=== PATIENT | female | born 1970 | race Hispanic/Latino ===

== ENCOUNTER 2018-10-28 08:36 | Emergency (ER) | payer SELFPAY ==
[2018-10-28] MEDS ORDERED: METOCLOPRAMIDE 10 MG/2mL INJ ONE (09:29)
[2018-10-28] MEDS ORDERED: DIPHENHYDRAMINE 50 MG/ML VIAL ONE (09:29)
[2018-10-28] MEDS ORDERED: dexAMETHasone 10 MG/ML VIAL ONE (09:29)
[2018-10-28] MEDS ORDERED: NA CHLORIDE 0.9% 1,000 ML ONE (09:29)
[2018-10-28 09:38] LABS: Protime INR 1.01
[2018-10-28 09:48] LABS: Absolute Lymphocytes (CBC) 2.7 K/uL (0.7-4.9); Basophils % 0.6 % (0-1.3); Eosinophils % 1.4 % (0-4.4); Hematocrit 40.1 % (36.0-45.0); Lymphocytes % 27.2 % (15.3-44.8); MPV 9.1 fL (7.6-11.3); Monocytes % 4.6 % (3.3-12.3); RBC Red Blood Cell Count 4.31 M/uL (3.86-4.86)
--- NOTE | 2018-10-28 09:53 | RAD REPORT ---
EXAM DESCRIPTION: CT - Head Brain Wo Cont - 10/28/2018 9:41 am CLINICAL HISTORY: HEADACHE Headache, drowsiness COMPARISON: No comparisons TECHNIQUE: All CT scans are performed using dose optimization technique as appropriate and may inclu de automated exposure control or mA/KV adjustment according to patient size. FINDINGS: No intracranial hemorrhage, hydrocephalus or extra-axial fluid collection.No areas of brai n edema or evidence of midline shift. The paranasal sinuses and mastoids are clear. The calvarium is intact. IMPRESSION: No acute intracranial abnormality.
[2018-10-28 09:58] LABS: ALT/SGPT 40 U/L (12-78); AST/SGOT 28 U/L (15-37); Albumin 4.1 g/dL (3.4-5.0); Alkaline Phosphatase ND U/L (45-117); BUN Blood Urea Nitrogen 9 mg/dL (7-18); Bicarbonate 25 mmol/L (21-32); Bilirubin Direct 0.1 mg/dL (0-0.2); Bilirubin Total 0.6 mg/dL (0.2-1.0); Glucose Level 136 mg/dL (74-106); Potassium 3.7 mmol/L (3.5-5.1); Sodium Level 138 mmol/L (136-145)
[2018-10-28 10:14] LABS: Urine Blood TRACE (NEG); Urine Glucose NEGATIVE (NEG); Urine Protein NEGATIVE (NEG); Urine Specific Gravity 1.015 (1.005-1.030)
[2018-10-28] MEDS ORDERED: KETOROLAC 30 MG/ML INJ ONE (10:15)
[2018-10-28 11:37] LABS: Urine Bacteria <20 /HPF (<20); Urine Culture Reflex Order NOT NEEDED; Urine RBC <5 /HPF (NONE SEEN)
--- NOTE | 2018-10-28 12:07 | EDPHYS ---
Physician Documentation [facility] Name: Agustina Miller Age: 48 yrs Sex: Female : 1970 Arrival Date: 10/28/2018 Time: 08:39 Bed 15 Private MD: None, None ED Physician Sarabjit Rodrigez HPI: 10/28 09:14 This 48 yrs old Female presents to ER via Ambulatory with complaints of wa Headache, Vomiting/Diarrhea. 09:14 The patient complains of pain to the began Right side, posterior radiating to front wa behind the eyes. The patient describes the headache as aching. Onset: The symptoms/episode began/occurred yesterday. Associated signs and symptoms: Pertinent positives: nausea, vomiting. Severity of symptoms: At its worst the pain was severe, in the emergency department the pain is unchanged. Headache History: The patient has had previous headaches and this one is similar to previous episodes. The symptoms are alleviated by nothing. the symptoms are aggravated by nothing. The patient has experienced similar episodes in the past. The patient has not recently seen a physician. states RAYMOND began R side posterior when driving home form work yesterday. began gradually. radiated to front and behind both eyes. now mostly bilateral facial. vomited x 2 since onset. states tried katelyn-seltzer and benadryl but did not help. 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 - Social history:: Smoking status: Patient/guardian denies using tobacco. - Ebola Screening: : Patient negative for fever greater than or equal to 101.5 degrees Fahrenheit, and additional compatible Ebola Virus Disease symptoms Patient denies exposure to infectious person Patient denies travel to an Ebola-affected area in the 21 days before illness onset No symptoms or risks identified at this time. - Family history:: not pertinent. - Hospitalizations: : No recent hospitalization is reported. ROS: 09:18 Constitutional: Negative for fever, chills, and weight loss, Eyes: Negative for injury, wa pain, redness, and discharge, ENT: Negative for injury, pain, and discharge, Neck: Negative for injury, pain, and swelling, Cardiovascular: Negative for chest pain, palpitations, and edema, Respiratory: Negative for shortness of breath, cough, wheezing, and pleuritic chest pain, Abdomen/GI: Negative for abdominal pain, nausea, vomiting, diarrhea, and constipation, Back: Negative for injury and pain, : Negative for injury, bleeding, discharge, and swelling, MS/Extremity: Negative for injury and deformity, Skin: Negative for injury, rash, and discoloration. 09:18 Neuro: Positive for headache, vomiting. 09:18 All other systems are negative. Exam: 09:19 Constitutional: This is a well developed, well nourished patient who is awake, alert, wa and in no acute distress. Head/Face: Normocephalic, atraumatic. Eyes: Pupils equal round and reactive to light, extra-ocular motions intact. Lids and lashes normal. Conjunctiva and sclera are non-icteric and not injected. Cornea within normal limits. Periorbital areas with no swelling, redness, or edema. ENT: Nares patent. No nasal discharge, no septal abnormalities noted. Tympanic membranes are normal and external auditory canals are clear. Oropharynx with no redness, swelling, or masses, exudates, or evidence of obstruction, uvula midline. Mucous membranes moist. Neck: Trachea midline, no thyromegaly or masses palpated, and no cervical lymphadenopathy. Supple, full range of motion without nuchal rigidity, or vertebral point tenderness. No Meningismus. Chest/axilla: Normal chest wall appearance and motion. Nontender with no deformity. No lesions are appreciated. Cardiovascular: Regular rate and rhythm with a normal S1 and S2. No gallops, murmurs, or rubs. Normal PMI, no JVD. No pulse deficits. Respiratory: Lungs have equal breath sounds bilaterally, clear to auscultation and percussion. No rales, rhonchi or wheezes noted. No increased work of breathing, no retractions or nasal flaring. Abdomen/GI: Soft, non-tender, with normal bowel sounds. No distension or tympany. No guarding or rebound. No evidence of tenderness throughout. Back: No spinal tenderness. No costovertebral tenderness. Full range of motion. Skin: Warm, dry with normal turgor. Normal color with no rashes, no lesions, and no evidence of cellulitis. MS/ Extremity: Pulses equal, no cyanosis. Neurovascular intact. Full, normal range of motion. Psych: Awake, alert, with orientation to person, place and time. Behavior, mood, and affect are within normal limits. 09:19 Neuro: Orientation: is normal, Cranial nerves: grossly normal, Cerebellar function: normal finger to nose testing, heel to brandt testing is normal, able to perform alternating rapid hand movements, Motor: is normal, Gait: is steady. Vital Signs: 08:46 BP 138 / 98; Pulse 82; Resp 17; Pulse Ox 98% on R/A; Weight 72.57 kg (R); Height 5 ft. sg 3 in. (160.02 cm); Pain 7/10; 09:32 BP 141 / 108; Pulse 80; Resp 16; Pulse Ox 95% on R/A; ca1 10:49 BP 140 / 99; Pulse 72; Resp 16 S; Temp 98.3(O); Pulse Ox 97% on R/A; ca1 11:30 BP 144 / 101; Pulse 76; Resp 17; Temp 97.2(TE); Pulse Ox 97% on R/A; mh5 12:17 BP 139 / 101; Pulse 75; Resp 16; Temp 98.0(TE); Pulse Ox 97% on R/A; mh5 08:46 Body Mass Index 28.34 (72.57 kg, 160.02 cm) sg MDM: 08:48 Patient medically screened. oh 09:21 Differential diagnosis: RAYMOND. migraine? will r/o acute event with head CT. will treat wa pain and reassess. no fever or neck stiffness. RAYMOND similar to previous episodes. will consider LP however if RAYMOND does not resolve with migraine cocktail. 12:04 Data reviewed: vital signs, nurses notes, lab test result(s), radiologic studies. Test oh interpretation: by ED physician or midlevel provider: glucose elevated at 136. nml head CT. Response to treatment: the patient's symptoms have resolved after treatment. ED course: RAYMOND resolved with ED interventions. 10/28 09:08 Order name: Basic Metabolic Panel oh 10/28 09:08 Order name: CBC with Diff oh 10/28 09:08 Order name: Hepatic Function oh 10/28 09:08 Order name: Protime (+inr); Complete Time: 10:51 10/28 09:08 Order name: Urine Microscopic Only; Complete Time: 11:56 10/28 09:09 Order name: Basic Metabolic Panel; Complete Time: 10:51 EDMS 10/28 09:08 Order name: CT Head Brain wo Cont; Complete Time: 09:54 10/28 09:09 Order name: CBC with Automated Diff; Complete Time: 10:51 EDMS 10/28 09:09 Order name: Liver (Hepatic) Function; Complete Time: 10:51 EDMS 10/28 10:11 Order name: Urine Dipstick--Ancillary (enter results); Complete Time: 10:51 em1 10/28 09:08 Order name: Labs collected and sent; Complete Time: 09:31 10/28 09:08 Order name: Cardiac monitoring; Complete Time: 09:31 10/28 09:08 Order name: IV Saline Lock; Complete Time: 09:31 10/28 09:08 Order name: NPO; Complete Time: 09:31 10/28 09:08 Order name: O2 Sat Monitoring; Complete Time: 09:10/28 09:08 Order name: Urine Dipstick-Ancillary (obtain specimen); Complete Time: 10:26 oh Administered Medications: 09:20 Drug: NS 0.9% 1000 ml Route: IV; Rate: 1 bolus; Site: right antecubital; ca1 10:35 Follow up: Urine output 160 ml; Response: No adverse reaction; IV Status: Completed ca1 infusion 09:20 Drug: Decadron - Dexamethasone 10 mg Route: IVP; Site: right antecubital; ca1 10:36 Follow up: Response: No adverse reaction; Pain is decreased ca1 09:25 Drug: Reglan 5 mg Route: IVP; Site: right antecubital; ca1 10:36 Follow up: Response: No adverse reaction; Pain is decreased ca1 09:30 Drug: Benadryl 12.5 mg Route: IVP; Site: right antecubital; ca1 10:37 Follow up: Response: No adverse reaction; Pain is decreased ca1 10:00 Drug: TORadol 30 mg Route: IVP; Site: right antecubital; ca1 10:37 Follow up: Response: No adverse reaction; Pain is decreased ca1 Disposition: 10/28/18 12:06 Discharged to Home. Impression: Acute Headache. - Condition is Stable. - Discharge Instructions: General Headache Without Cause, [id number]. - Prescriptions for ketorolac 10 mg Oral tablet - take 1 tablet by ORAL route every 8 hours not to exceed 40mg in 24hrs for up to 5 days total use; 20 tablet. Zofran 4 mg Oral Tablet - take 1 tablet by ORAL route every 12 hours As needed; 20 tablet. - Medication Reconciliation Form, Thank You Letter, Antibiotic Education, Prescription Opioid Use, Work release form, Family Work Release form. - Follow up: Zach Marcus MD; When: 1 - 2 days; Reason: Recheck today's complaints. - Problem is new. - Symptoms have improved. - Notes: take medication as needed if in pain. follow up with the neurologist as discussed, for further evaluation Signatures: Dispatcher [employer] EDKamron Ansari RN RN sg Sarabjit Rodrigez MD MD wa Acjerry, Aimee RN RN ca1 Corrections: (The following items were deleted from the chart) 09:10 09:08 Urine Test ordered. oh ca1 12:22 12:06 10/28/2018 12:06 Discharged to Home. Impression: Acute Headache. Condition is ca1 Stable. Forms are Medication Reconciliation Form, Thank You Letter, Antibiotic Education, Prescription Opioid Use. Follow up: Zach Marcus; When: 1 - 2 days; Reason: Recheck today's complaints. Problem is new. Symptoms have improved. oh
--- NOTE | 2018-10-28 12:07 | ER ---
Nurse's Notes [facility] Name: Agustina Miller Age: 48 yrs Sex: Female : 1970 Arrival Date: 10/28/2018 Time: 08:39 Bed 15 Private MD: None, None Diagnosis: Acute Headache Presentation: 10/28 08:47 Presenting complaint: Patient states: Headache, pain behind eyes in forehead and sg cheeks, pain in back of head as well, started last night around 8 pm, reports nausea/vomitingx1 after taking childrens benadryl, taking claritin for allergies and alkaseltzer sever sinus but no relief. reports chills denies fever. Transition of care: patient was not received from another setting of care. Onset of symptoms was October 28, 2018. Risk Assessment: Do you want to hurt yourself or someone else? Patient reports no desire to harm self or others. Initial Sepsis Screen: Does the patient meet any 2 criteria? No. Patient's initial sepsis screen is negative. Does the patient have a suspected source of infection? No. Patient's initial sepsis screen is negative. Care prior to arrival: None. 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 - Social history:: Smoking status: Patient/guardian denies using tobacco. - Ebola Screening: : Patient negative for fever greater than or equal to 101.5 degrees Fahrenheit, and additional compatible Ebola Virus Disease symptoms Patient denies exposure to infectious person Patient denies travel to an Ebola-affected area in the 21 days before illness onset No symptoms or risks identified at this time. - Family history:: not pertinent. - Hospitalizations: : No recent hospitalization is reported. Screenin:01 Abuse screen: Denies threats or abuse. Denies injuries from another. Nutritional ca1 screening: No deficits noted. Tuberculosis screening: No symptoms or risk factors identified. Fall Risk None identified. Assessment: 09:04 General: Appears in no apparent distress. comfortable, Behavior is calm, cooperative, ca1 appropriate for age. Pain: Complains of pain in face and scalp Pain currently is 7 out of 10 on a pain scale. Pain began 1 day ago. Neuro: Level of Consciousness is awake, alert, obeys commands, Reports headache. Cardiovascular: Heart tones S1 S2 present Capillary refill < 3 seconds Patient's skin is warm and dry. Respiratory: Airway is patent Respiratory effort is even, unlabored, Respiratory pattern is regular, symmetrical, Breath sounds are clear bilaterally. GI: Abdomen is flat, non-distended, Bowel sounds present X 4 quads. Abd is soft and non tender X 4 quads. Reports nausea, vomiting. : No deficits noted. No signs and/or symptoms were reported regarding the genitourinary system. EENT: No deficits noted. No signs and/or symptoms were reported regarding the EENT system. Derm: Skin is intact, is healthy with good turgor, Skin is pink, warm \\T\\ dry. Musculoskeletal: Circulation, motion, and sensation intact. Capillary refill < 3 seconds. 10:39 Reassessment: Patient appears in no apparent distress at this time. Patient and/or ca1 family updated on plan of care and expected duration. Pain level reassessed. Patient is alert, oriented x 3, equal unlabored respirations, skin warm/dry/pink. Pt states, "pain is gone but I still feel the pressure on my face". 11:44 Reassessment: Patient appears in no apparent distress at this time. Patient and/or ca1 family updated on plan of care and expected duration. Pain level reassessed. Patient is alert, oriented x 3, equal unlabored respirations, skin warm/dry/pink. 12:19 Reassessment: Patient appears in no apparent distress at this time. Patient is alert, ca1 oriented x 3, equal unlabored respirations, skin warm/dry/pink. Patient states feeling better. Vital Signs: 08:46 BP 138 / 98; Pulse 82; Resp 17; Pulse Ox 98% on R/A; Weight 72.57 kg (R); Height 5 ft. sg 3 in. (160.02 cm); Pain 7/10; 09:32 BP 141 / 108; Pulse 80; Resp 16; Pulse Ox 95% on R/A; ca1 10:49 BP 140 / 99; Pulse 72; Resp 16 S; Temp 98.3(O); Pulse Ox 97% on R/A; ca1 11:30 BP 144 / 101; Pulse 76; Resp 17; Temp 97.2(TE); Pulse Ox 97% on R/A; mh5 12:17 BP 139 / 101; Pulse 75; Resp 16; Temp 98.0(TE); Pulse Ox 97% on R/A; mh5 08:46 Body Mass Index 28.34 (72.57 kg, 160.02 cm) ED Course: 08:39 Patient arrived in ED. mr 08:39 None, None is Private Physician. mr 08:48 Sarabjit Rodrigez MD is Attending Physician. wa 08:49 Triage completed. sg 08:50 Arm band placed on. sg 08:53 Aimee Keith, DAVIS is Primary Nurse. ca1 09:01 Patient has correct armband on for positive identification. Bed in low position. Call ca1 light in reach. Side rails up X 1. Pulse ox on. NIBP on. Warm blanket given. 09:20 Inserted saline lock: 20 gauge in right antecubital area, using aseptic technique. ca1 Blood collected. 09:39 CT Head Brain wo Cont In Process Unspecified. EDMS 12:06 Zach Marcus MD is Referral Physician. wa 12:20 No provider procedures requiring assistance completed. IV discontinued, intact, ca1 bleeding controlled, No redness/swelling at site. Pressure dressing applied. Administered Medications: 09:20 Drug: NS 0.9% 1000 ml Route: IV; Rate: 1 bolus; Site: right antecubital; ca1 10:35 Follow up: Urine output 160 ml; Response: No adverse reaction; IV Status: Completed ca1 infusion 09:20 Drug: Decadron - Dexamethasone 10 mg Route: IVP; Site: right antecubital; ca1 10:36 Follow up: Response: No adverse reaction; Pain is decreased ca1 09:25 Drug: Reglan 5 mg Route: IVP; Site: right antecubital; ca1 10:36 Follow up: Response: No adverse reaction; Pain is decreased ca1 09:30 Drug: Benadryl 12.5 mg Route: IVP; Site: right antecubital; ca1 10:37 Follow up: Response: No adverse reaction; Pain is decreased ca1 10:00 Drug: TORadol 30 mg Route: IVP; Site: right antecubital; ca1 10:37 Follow up: Response: No adverse reaction; Pain is decreased ca1 Output: 10:35 Urine: 160ml; Total: 160ml. ca1 Outcome: 12:06 Discharge ordered by . tejal 12:21 Discharged to home ambulatory, with significant other. ca1 12:21 Condition: stable 12:21 Discharge instructions given to patient, Instructed on discharge instructions, follow up and referral plans. no drinking with medication, no driving heavy equipment, medication usage, Demonstrated understanding of instructions, follow-up care, medications, Prescriptions given X 2. 12:22 Patient left the ED. ca1 Signatures: Dispatcher [employer] EDMS Kamron Vela RN RN Laura Brown mr Lucero Kelle [facility] Sarabjit Rodrigez MD MD wa Acob, Cheryl, RN RN ca1
== END 2018-10-28 12:22 | disposition home or self-care (01) ==
LOC: ER 08:36
DX: R51 Headache (principal); J30.2 Other seasonal allergic rhinitis; Z88.0 Allergy status to penicillin
CPT/HCPCS: 36415; 70450; 80048; 80076; 81003; 81015; 85025; 85610; 96361; 96374; 96375; 99284; J1100; J2765; J7030